=== PATIENT | female | born 1985 | race Caucasian/White ===

== ENCOUNTER → 2019-03-13 18:14 | Outpatient (CLI) | payer BC, OTHER, SELFPAY | PROVIDERS: Family Provider Family Medicine; PCP Family Medicine; Visit Provider Physician Assistant | DX: N30.01 Acute cystitis with hematuria (principal) | CPT/HCPCS: 87086 ==

== ENCOUNTER → 2019-05-16 15:58 | Outpatient (CLI) | payer OTHER, SELFPAY ==
[2019-05-16 16:57] LABS: Appearance Urine UA CLOUDY
[2019-05-16 17:07] LABS: Color Urine UA ORANGE; pH Urine UA 6.5 (4.5-8.0)
[2019-05-16 17:08] LABS: Bacteria Urine Few (2-10); Culture Indicated Urine Specimen Cultured; RBC Urine 10-30/HPF (0-5/HPF); Squamous Epithelial Cell Urine 1-5 /HPF (0-5/HPF); WBC Urine >100/HPF (0-5/HPF)
== END ==
PROVIDERS: PCP Family Medicine; Visit Provider Physician Assistant
DX: R39.15 Urgency of urination (principal)
CPT/HCPCS: 81001; 87077; 87086; 87186

== ENCOUNTER → 2019-10-15 16:17 | Outpatient (CLI) | payer OTHER, SELFPAY ==
[2019-10-15 17:54] LABS: Appearance Urine UA SL CLOUDY; Bilirubin Urine UA NEGATIVE (NEGATIVE); Color Urine UA YELLOW; Glucose Urine UA NEGATIVE (Negative); Ketones Urine UA TRACE (NEGATIVE); Leukocyte Esterase Urine UA TRACE (NEGATIVE); Nitrite Urine UA NEGATIVE (Negative); Occult Blood Urine UA NEGATIVE (Negative); Protein Urine UA TRACE (Negative); Specific Gravity Urine UA 1.015 (1.000-1.035); Urobilinogen Urine UA 0.2 E.U./dL (0.2)
[2019-10-15 18:00] LABS: pH Urine UA 7.5 (4.5-8.0)
[2019-10-15 18:03] LABS: RBC Urine 0-1/HPF (0-5/HPF); WBC Urine 5-10/HPF (0-5/HPF)
[2019-10-15 18:05] LABS: Squamous Epithelial Cell Urine 1-5 /HPF (0-5/HPF)
[2019-10-15 18:06] LABS: Amorphous Sediment Urine 2+; Bacteria Urine Few (2-10); Culture Indicated Urine Specimen Cultured; Mucus Urine 2+ (Negative)
== END ==
PROVIDERS: PCP Family Medicine; Referring Provider Physician Assistant; Visit Provider Physician Assistant
DX: R39.15 Urgency of urination (principal)
CPT/HCPCS: 81001; 87086

== ENCOUNTER → 2021-02-17 14:02 | Outpatient (CLI) | payer OTHER, SELFPAY ==
--- NOTE | 2021-02-17 14:06 | DI.MRI.S_ITS ---
PROCEDURE: MR FOOT RT WO CON INDICATIONS: Pain in right foot TECHNIQUE: Noncontrast sagittal T1 spin echo and T2 fast spin echo with fat saturation, long-axis T1 spin echo and T2 fast spin echo with fat saturation, short-axis T1 spin echo and T2 fast spin echo with fat saturation through the forefoot. COMPARISON: [facility], CR, XR FOOT 3+ VIEWS RIGHT, 01/26/2021, 8:57. FINDINGS: Image quality: Excellent. Bones and joints: No bone marrow contusions or metatarsal stress fractures. The sesamoid bones appear in expected positions, without internal edema. No metatarsophalangeal joint degeneration. No intraosseous lesions. Soft tissues: The visualized plantar foot muscles demonstrate normal signal and bulk. Visualized flexor and extensor tendons appear intact, without tenosynovitis. The distal insertions of the peroneus brevis and longus tendons appear intact. The principal Lisfranc ligament appears intact. No soft tissue ganglion cysts or bursal fluid collections. Sagittal images demonstrate no evidence for plantar plate tears. IMPRESSION: Unremarkable MRI examination of midfoot and forefoot. No finding to explain patient's symptoms. Dictated by: Ethan Guajardo M.D. on 02/17/2021 at 14:54 Approved by: Ethan Guajardo M.D. on 02/17/2021 at 15:02
== END ==
PROVIDERS: PCP Family Medicine; Referring Provider Podiatrist; Visit Provider Podiatrist
DX: M79.671 Pain in right foot (principal)
CPT/HCPCS: 73718

== ENCOUNTER → 2022-07-26 10:23 | Outpatient (CLI) | payer OTHER, SELFPAY | PROVIDERS: PCP Family Medicine; Referring Provider Otolaryngology; Visit Provider Otolaryngology | DX: T78.40XA Allergy, unspecified, initial encounter (principal) | CPT/HCPCS: 36415; 86003 ==

== ENCOUNTER → 2022-08-11 13:30 | Outpatient (CLI) | payer OTHER, SELFPAY ==
[2022-08-11 17:13] LABS: Influenza A - CEPHEID Flu A POSITIVE (NEGATIVE); Influenza B - CEPHEID Flu B NEGATIVE (NEGATIVE); Respiratory Syncytial Virus Negative (Negative)
[2022-08-11 17:15] LABS: COVID-19 CEPHEID 4-PLEX PCR Negative (Negative)
== END ==
PROVIDERS: PCP Family Medicine; Visit Provider Nurse Practitioner Family
DX: R05.9 Cough, unspecified (principal); Z20.822 Contact with and (suspected) exposure to COVID-19
CPT/HCPCS: 0241U

== ENCOUNTER → 2022-12-20 10:09 | Outpatient (CLI) | payer OTHER, SELFPAY ==
[2022-12-20 10:51] LABS: Influenza A - CEPHEID Flu A NEGATIVE (NEGATIVE); Influenza B - CEPHEID Flu B NEGATIVE (NEGATIVE); Respiratory Syncytial Virus Negative (Negative)
[2022-12-20 10:53] LABS: COVID-19 CEPHEID 4-PLEX PCR Negative (Negative)
== END ==
PROVIDERS: PCP Family Medicine; Visit Provider Nurse Practitioner Family
DX: R05.1 Acute cough (principal)
CPT/HCPCS: 0241U

== ENCOUNTER → 2023-04-04 08:50 | Outpatient (CLI) | payer OTHER, SELFPAY ==
[2023-04-04 12:23] LABS: Add Manual Diff / Slide Review NO; Basophils Absolute Auto 0 /uL (0-100); Basophils Percent Auto 0.6 % (0-2); Eosinophils Absolute Auto 100 /uL (0-450); Eosinophils Percent Auto 2.2 % (2-4); Hematocrit 35.3 % (36-46); Hemoglobin 12.1 g/dL (12.0-16.0); Lymphocytes Absolute Auto 2100 /uL (1100-4500); Lymphocytes Percent Auto 33.6 % (25-40); Mean Corpuscular HGB Conc 34.2 % (30-36); Mean Corpuscular Hemoglobin 29.8 PG (26-34); Mean Corpuscular Volume 87.1 fL (80-100); Monocytes Absolute Auto 400 /uL (0-900); Monocytes Percent Auto 7.1 % (3-14); Neutrophils Absolute Auto 3500 /uL (1500-7000); Neutrophils Percent Auto 56.5 % (50-75); Platelet Count 242 X10^3/uL (150-400); Red Blood Cell Count 4.05 X10^6/uL (4.0-5.2); White Blood Cell Count 6.2 X10^3/uL (4.5-11.0)
[2023-04-04 17:38] LABS: HEMOLYSIS < 15 (0-50); Iron 78 ug/dL (37-170)
[2023-04-04 17:46] LABS: Alanine Aminotransferase 17 IU/L (<35); Albumin 4.1 g/dL (3.5-5.0); Albumin Globulin Ratio 1.6 (1.0-2.8); Alkaline Phosphatase 50 U/L (38-126); Aspartate Aminotransferase 24 IU/L (14-36); BUN Creatinine Ratio 13.8 (6-22); Bilirubin Total 0.3 mg/dL (0.2-1.3); Blood Urea Nitrogen 12 mg/dL (7-17); Carbon Dioxide 25 mmol/L (22-32); Chloride 105 mmol/L (98-107); Cholesterol 202 mg/dL (140-199); Estimated Glomerular Filt Rate > 60 mL/min (>60); Globulin 2.5 g/dL (1.7-4.1); Glucose 77 mg/dL (70-100); HDL Cholesterol 89 mg/dL (40-60); HEMOLYSIS < 15 (0-50); LDL Cholesterol Calculated 83 mg/dL (<100); Potassium 3.8 mmol/L (3.4-5.1); Sodium 137 mmol/L (137-145); Total Protein 6.6 g/dL (6.3-8.2); Triglycerides 149 mg/dL (35-150)
[2023-04-04 17:54] LABS: Percent Iron Saturation 19 % (15-50); Total Iron Binding Capacity 411 ug/dL (265-497); Transferrin 340 mg/dL (206-381)
[2023-04-04 18:09] LABS: Free T4, Direct Thyroxine 1.02 ng/dL (0.78-2.19)
[2023-04-04 18:23] LABS: Thyroid Stimulating Hormone 1.63 uIU/mL (0.47-4.68)
[2023-04-04 18:30] LABS: Ferritin 45 ng/mL (6-137)
[2023-04-04 19:02] LABS: Folate 7.4 ng/mL (2.76-20.0); Vitamin B12 459 pg/mL (239-931)
[2023-04-06 05:52] LABS: x Labcorp Estim. Avg Glu (eAG) 100 mg/dL (.); x Labcorp Hemoglobin A1c 5.1 % (4.8-5.6)
== END ==
PROVIDERS: PCP Naturopath; Referring Provider Naturopath; Visit Provider Naturopath
DX: N80.9 Endometriosis, unspecified (principal); R51.9 Headache, unspecified
CPT/HCPCS: 36415; 80053; 80061; 82607; 82728; 82746; 83036; 83540; 83550; 84439; 84443; 84481; 85025

== ENCOUNTER 2023-09-07 15:35 | Emergency (ER) | payer OTHER, SELFPAY ==
[2023-09-07 15:42] VITALS: BP 141/79; PULSE 95; RESP 18; TEMP 37.1; O2SAT 100; BMI 23.5
[2023-09-07 16:46] LABS: Adenovirus Not Detected (Not Detect); B. parapertussis Not Detected (Not Detecte); Bordetella pertussis Not Detected (Not Detect); Chlamydophila pneumoniae Not Detected (Not Detect); Coronavirus 229E Not Detected (Not Detect); Coronavirus HKU1 Not Detected (Not Detect); Coronavirus NL 63 Not Detected (Not Detect); Coronavirus OC43 Not Detected (Not Detect); Human Metapneumovirus Not Detected (Not Detect); Human Rhinovirus/Enterovirus Not Detected (Not Detect); Influenza A Not Detected (Not Detect); Influenza B Not Detected (Not Detect); Mycoplasma pneumoniae Not Detected (Not Detect); Parainfluenza Virus 1 Detected (Not Detect); Parainfluenza Virus 2 Not Detected (Not Detect); Parainfluenza Virus 3 Not Detected (Not Detect); Parainfluenza Virus 4 Not Detected (Not Detect); Respiratory Syncytial Virus Not Detected (Not Detect); SARS- CoV-2 Not Detected (Not Detecte)
[2023-09-07] MEDS: SODIUM CHLORIDE 0.9% 1,000 ML 1000 ML IV (16:48)
[2023-09-07] MEDS: ONDANSETRON 4 MG/2 ML INJ IV (16:48)
--- NOTE | 2023-09-07 16:58 | ED.URI ---
HPI - URI/Sore Throat <GAVIN Casanova - Last Filed: 09/07/23 17:57> General Chief Complaint: Upper Respiratory Symptoms Stated Complaint: respiratory issues and vomiting Source: patient Mode of arrival: Ambulatory History of Present Illness HPI Narrative: 38-year-old female, never smoker, presents to the emergency department with 2 day history of nausea and vomiting and 10 days of cough and congestion. Patient has been on a brat diet without any improvement of appetite. Patient took Zofran twice yesterday without any improvement, but did take a single dose today with minor improvement. Patient has been concerned because she has not been able to hold down any significant amount of food or fluids for long periods of time. History of seasonal allergies and takes allergy pills as needed. Surgical history includes x2 and bilateral ovarian cyst removal. Patient has not had a menses since the ovarian cyst removal in 2015. Related Data Home Medications Medication Instructions Recorded Confirmed drospirenone 3 mg-ethinyl ##0 12/27/17 12/20/22 estradiol 0.02 mg tablet (JONATHAN (28)) topiramate 50 mg tablet (Topamax) ##0 12/27/17 12/20/22 tolterodine 4 mg capsule,extended 4 mg PO DAILY 09/07/19 12/20/22 release 24 hr Previous Rx's Medication Instructions Recorded azithromycin 250 mg tablet See Rx Instructions PO .COMPLEX #6 09/07/19 tabs Allergies Allergy/AdvReac Type Severity Reaction Status Date / Time sulfamethoxazole Allergy Severe hives, Verified 09/07/23 15:47 [From BACTRIM] hospitalized trimethoprim [From BACTRIM] Allergy Severe hives, Verified 09/07/23 15:47 hospitalized Penicillins [PENICILLINS] Allergy Unknown Verified 09/07/23 15:47 Review of Systems <GAVIN Casanova - Last Filed: 09/07/23 17:57> Review of Systems Narrative: Narrative: See HPI. GENERAL: Denies chills, fatigue, fever, sweats. HEENT: Denies sinus pain, sore throat, difficulty swallowing, dizziness. Endorses ear fullness. RESPIRATORY: Denies dyspnea, wheezing, sputum. Endorses cough and congestion. CARDIOVASCULAR: Denies chest pain, palpitations, edema. GASTROINTESTINAL: Denies abdominal pain, diarrhea, constipation. Endorses nausea and vomiting. : Denies dysuria, frequency, incontinence, hematuria, urinary retention, flank pain. MSK: Denies weakness, joint pain, or bony pain. SKIN: Denies rash, skin lesions, or pruritis. NEUROLOGIC: Denies weakness, dizziness, headache, numbness, confusion. PSYCHIATRIC: No concerning psychosocial issues. Patient History <GAVIN Casanova - Last Filed: 09/07/23 17:57> Social History Smoking Status: Never smoker Smoking Status: Never smoker alcohol intake frequency: 0-2 drinks per day Substance Use Type: does not use Exam <GAVIN Casanova - Last Filed: 09/07/23 17:57> Narrative Exam Narrative: Exam Narrative: GENERAL: This is a well-nourished, well-developed patient, in no acute distress. HEAD: Atraumatic. Normocephalic. EYES: Pupils equal round and reactive. Extraocular motions intact. No scleral icterus, injection or drainage. ENT: Nose without bleeding, purulent drainage. Throat without erythema, tonsillar hypertrophy, positive postnasal exudate. Uvula midline. Airway patent. TMs and canals clear. Right TM with mild effusion and left TM with PE tube in place, without any discharge. No sinus tenderness. NECK: Trachea midline. No JVD or lymphadenopathy. Nontender. CARDIOVASCULAR: Regular rate and rhythm without murmurs, peripheral pulses intact, cap refill <2 sec. RESPIRATORY: Breath sounds equal and clear bilaterally. No wheezes, rales, or rhonchi. No witnessed cough. No increased respiratory effort. No accessory muscle use. GASTROINTESTINAL: Abdomen soft, generalized tenderness, nondistended without guarding or rebound. No suprapubic pain. MSK: Moves all extremities. Normal range of motion, no clubbing or edema. Neurovascularly intact. NEURO: A&O x 3. SKIN: Warm, dry, no rashes or lesions noted. Initial Vital Signs Initial Vital Signs: Vital Signs Temperature 98.7 F 09/07/23 15:42 Pulse Rate 95 H 09/07/23 15:42 Respiratory Rate 18 09/07/23 15:42 Blood Pressure 141/79 H 09/07/23 15:42 Pulse Oximetry 100 09/07/23 15:42 Oxygen Delivery Method Room Air 09/07/23 15:42 Reviewed <Lanre Allred DO - Last Filed: 09/07/23 18:18> Initial Vital Signs Initial Vital Signs: Vital Signs Temperature 98.7 F 09/07/23 15:42 Pulse Rate 95 H 09/07/23 15:42 Respiratory Rate 18 09/07/23 15:42 Blood Pressure 141/79 H 09/07/23 15:42 Pulse Oximetry 100 09/07/23 15:42 Oxygen Delivery Method Room Air 09/07/23 15:42 Course <GAVIN Casanova - Last Filed: 09/07/23 17:57> Orders Ordered: ED Orders 09/07/23 15:49 Respiratory Panel (Film Array) Stat Discontinued Medications Sodium Chloride (Normal Saline 0.9%) 1,000 mls @ 1,000 mls/hr IV BOLUS ONE Stop: 09/07/23 17:36 Last Infusion: 09/07/23 17:34 Dose: Infused Documented By: Admin: 09/07/23 16:48 Dose: 1,000 mls/hr Documented By: URSULA Ondansetron HCl (Ondansetron 4 Mg/2 Ml Inj) 4 mg IV NOW ONE Stop: 09/07/23 16:38 Last Admin: 09/07/23 16:48 Dose: 4 mg Documented By: URSULA Vital Signs Vital signs: Vital Signs - 8 hr 09/07/23 15:42 09/07/23 17:33 09/07/23 18:04 Temperature 98.7 F 98.3 F Pulse Rate 95 H 70 74 Respiratory Rate 18 14 18 Blood Pressure 141/79 H 122/79 122/71 Pulse Oximetry 100 100 100 Oxygen Delivery Method Room Air Room Air Room Air <Lanre Allred DO - Last Filed: 09/07/23 18:18> Orders Ordered: ED Orders 09/07/23 15:49 Respiratory Panel (Film Array) Stat Discontinued Medications Sodium Chloride (Normal Saline 0.9%) 1,000 mls @ 1,000 mls/hr IV BOLUS ONE Stop: 09/07/23 17:36 Last Infusion: 09/07/23 17:34 Dose: Infused Documented By: Admin: 09/07/23 16:48 Dose: 1,000 mls/hr Documented By: URSULA Ondansetron HCl (Ondansetron 4 Mg/2 Ml Inj) 4 mg IV NOW ONE Stop: 09/07/23 16:38 Last Admin: 09/07/23 16:48 Dose: 4 mg Documented By: URSULA Vital Signs Vital signs: Vital Signs - 8 hr 09/07/23 15:42 09/07/23 17:33 09/07/23 18:04 Temperature 98.7 F 98.3 F Pulse Rate 95 H 70 74 Respiratory Rate 18 14 18 Blood Pressure 141/79 H 122/79 122/71 Pulse Oximetry 100 100 100 Oxygen Delivery Method Room Air Room Air Room Air MDM - URI/Sore Throat <GAVIN Casanova - Last Filed: 09/07/23 17:57> Differential Diagnosis Differential diagnosis: Likely upper respiratory infection, viral infection and influenza Lab Data Labs: Lab Results 09/07/23 Range/Units 15:49 Chlamy pneumoniae PCR Not detected (Not Detect) Adenovirus (PCR) Not detected (Not Detect) B.parapertussis DNA PCR Not detected (Not Detecte) Coronavirus OC43 (PCR) Not detected (Not Detect) Coronavirus HKU1 (PCR) Not detected (Not Detect) Coronavirus 229E (PCR) Not detected (Not Detect) SARS-CoV-2 (PCR) Not detected (Not Detecte) Coronavirus NL63 (PCR) Not detected (Not Detect) Human Metapneumovir PCR Not detected (Not Detect) Influenza Type A (PCR) Not detected (Not Detect) Influenza Type B (PCR) Not detected (Not Detect) M. pneumoniae (PCR) Not detected (Not Detect) Parainfluenza 1 (PCR) Detected H (Not Detect) Parainfluenza 2 (PCR) Not detected (Not Detect) Parainfluenza 3 (PCR) Not detected (Not Detect) Parainfluenza 4 (PCR) Not detected (Not Detect) RSV (PCR) Not detected (Not Detect) Entero/Rhino (PCR) Not detected (Not Detect) MDM Narrative Medical decision making narrative: 38-year-old female with viral-like symptoms. Respiratory panel revealed parainfluenza 1. Assessment was encouraging and no red flags symptoms noted. Patient given Zofran and IV fluids, with improvement of symptoms. Recommended patient treat this at home with supportive care to include rest, hydration and time. Patient has Zofran at home and does not require another prescription. Discussed plan of care and worsening symptoms that would necessitate a return visit. Patient verbalized understanding and was agreeable with course of action. <Lanre Brigida, DO - Last Filed: 09/07/23 18:18> Lab Data Labs: Lab Results 09/07/23 Range/Units 15:49 Chlamy pneumoniae PCR Not detected (Not Detect) Adenovirus (PCR) Not detected (Not Detect) B.parapertussis DNA PCR Not detected (Not Detecte) Coronavirus OC43 (PCR) Not detected (Not Detect) Coronavirus HKU1 (PCR) Not detected (Not Detect) Coronavirus 229E (PCR) Not detected (Not Detect) SARS-CoV-2 (PCR) Not detected (Not Detecte) Coronavirus NL63 (PCR) Not detected (Not Detect) Human Metapneumovir PCR Not detected (Not Detect) Influenza Type A (PCR) Not detected (Not Detect) Influenza Type B (PCR) Not detected (Not Detect) M. pneumoniae (PCR) Not detected (Not Detect) Parainfluenza 1 (PCR) Detected H (Not Detect) Parainfluenza 2 (PCR) Not detected (Not Detect) Parainfluenza 3 (PCR) Not detected (Not Detect) Parainfluenza 4 (PCR) Not detected (Not Detect) RSV (PCR) Not detected (Not Detect) Entero/Rhino (PCR) Not detected (Not Detect) Discharge Plan Departure Patient Disposition: Home Clinical Impression: Viral infection Instructions: DI for Influenza -- Adult Activity Restrictions/Additional Instructions: *You have been diagnosed with a viral illness. Your respiratory panel was positive for parainfluenza 1. Treatment for this includes supportive care that includes rest, hydration and time. Please use your Zofran as needed for nausea and maintain a brat diet until you can advance as tolerated. *What to do: *Please continue to take your regular medications as directed. [ ] New medication prescriptions sent to your pharmacy: [ ] [ ] New medication written as a paper prescription [x ] No new medications given *Please follow up with your primary care provider in 2-3 days, call for an appointment. Let them know you were seen in the Emergency Department and that we ask that you be seen in follow up. We will electronically transmit a record of today's note if your PCP is in our system *If you do not have a primary care provider please contact the [facility] Resource line at [phone]. They will ask some questions about your medical history and help get you set up with a doctor in the community. ? Return to ER if you should have any new, worsening or concerning symptoms, such as worsening pain, severe headache, confusion, chest pain, difficulty breathing, fever greater than 101 F, shaking chills, persistent vomiting to the point that you cannot drink fluids, or other new or worsening symptoms. Prescriptions: No Action tolterodine 4 mg capsule,extended release 24hr 4 mg PO DAILY azithromycin 250 mg tablet See Rx Instructions PO .COMPLEX Qty: 6 0RF Rx Instructions: take 500 mg today (day 1), then 250 mg for 4 days (days 2-5) PO topiramate [Topamax] 50 MG tablet Qty: 0 drospirenone-ethinyl estradiol [JONATHAN (28)] 0.01 MG/3 MG tablet Qty: 0 Referrals: Anahi Valdez ND [Primary Care Provider] - Stand Alone Forms: Patient Portal/API ED Sign-out <Lanre Allred DO - Last Filed: 09/07/23 18:18> Cosign ED Attending Cosignature Attestation: Dr Allred Co-Sign Statement: I was available for consultation during this patient's emergency department visit. This chart is signed by myself for administrative purposes only. I did not have direct contact with this patient during this visit. They were seen independently by the APC.
[2023-09-07 17:33] VITALS: BP 122/79; PULSE 70; RESP 14; O2SAT 100
[2023-09-07 18:04] VITALS: BP 122/71; PULSE 74; RESP 18; TEMP 36.8; O2SAT 100
== END 2023-09-07 18:10 | disposition home or self-care (01) ==
PROVIDERS: Emergency Medicine; Emergency Provider Registered Nurse; PCP Naturopath
DX: B34.9 Viral infection, unspecified (principal); R11.2 Nausea with vomiting, unspecified; Z20.822 Contact with and (suspected) exposure to COVID-19
CPT/HCPCS: 87633; 96361; 96374; 99283; 99284; J2405

== ENCOUNTER → 2024-01-02 08:51 | Outpatient (CLI) | payer OTHER, SELFPAY ==
--- NOTE | 2024-01-02 08:54 | DI.RAD.S_ITS ---
PROCEDURE: XR HIP W PEL IF DONE LT 2V INDICATIONS: HIP PAIN TECHNIQUE: AP pelvis with lateral view(s) of the left hip(s). COMPARISON: None. FINDINGS: Bones: Mild left hip joint osteoarthritic changes are seen. No fracture or dislocation. No evidence of avascular necrosis of femoral head. No suspicious bony lesions. Soft tissues: The visualized bowel gas pattern is normal. Small calcification adjacent to lateral aspect of left acetabular roof is seen. IMPRESSION: No acute left hip fracture or dislocation. Very mild left hip joint osteoarthritis. No evidence of avascular necrosis. Small calcification adjacent to left acetabular roof which may represent old injury and can be seen associated with labral tear. If indicated, MRI of hip can be done for further evaluation of left hip labrum. Dictated by: Ethan Guajardo M.D. on 01/02/2024 at 12:44 Approved by: Ethan Guajardo M.D. on 01/02/2024 at 12:45
== END ==
PROVIDERS: PCP Physician Assistant; Referring Provider Physician Assistant; Visit Provider Physician Assistant
DX: M16.12 Unilateral primary osteoarthritis, left hip (principal); M25.552 Pain in left hip
CPT/HCPCS: 73502